=== PATIENT | male | born 1980 | race Two or more races ===

== ENCOUNTER 2016-03-31 15:39 | Inpatient (IN) | payer MEDICAID ==
[2016-03-31 16:36] LABS: BASO # 0.1 K/mm3 (0.0-0.2); BASO % 0.7 % (0.2-1.0); EOS # 0.1 (0.0-0.5); EOS % 1.4 % (0.9-2.9); HEMATOCRIT 41.4 % (32.0-52.0); HEMOGLOBIN 13.8 gm/l (14.0-18.0); IMM NEUT% 0.3 % (0-1); LYMPH # 2.2 (1.0-4.8); LYMPH % 31.6 % (15-45); MEAN CELL VOLUME 97.2 fl (80.0-94.0); MEAN CORPUSCULAR HEMOGLOBIN 32.4 pg (27.0-31.0); MEAN CORPUSCULAR HGB CONC 33.3 g/dl (33.0-37.0); MEAN PLATELET VOLUME 10.1 fl (7.4-10.4); MONO # 0.6 (0.0-0.8); MONO % 8.4 % (4-12); NEUT % 57.6 % (43-75); PLATELET COUNT 241 K/mm3 (130-400); RED CELL DISTRIBUTION WIDTH 12.8 % (11.5-14.5)
[2016-03-31 16:45] LABS: ALB/GLOB RATIO 1.5 (>1.0)
[2016-03-31 16:47] LABS: C-REACTIVE PROTEIN 1.5 mg/dl (<1.0)
--- NOTE | 2016-03-31 16:54 | RAD ---
Exam: Two-view left knee COMPARISON: None INDICATION: Left knee pain, concern for osteomyelitis. Findings: AP and lateral views of the left knee were obtained. Mild soft tissue swelling is seen anteriorly, and there is perhaps a tiny joint effusion. Overall normal bone mineralization. No focal osteopenia or cortical erosion is identified. Alignment is maintained and joint spaces are preserved. IMPRESSION: No radiographic evidence of osteomyelitis in the left knee.
[2016-03-31] MEDS ORDERED: MENTHOL/CETYLPYRD 1 EACH LOZENGE PO PRN (17:07)
[2016-03-31] MEDS ORDERED: BLISTEX LIPSTICK 1 EACH TP PRN (17:07)
[2016-03-31] MEDS ORDERED: MORPHINE SULFATE 2 MG/ML SYRINGE IV PRN ×2 (17:07→21:30)
[2016-03-31] MEDS ORDERED: LACTATED RINGERS 1,000 ML IV SCH ×2 (17:15→20:45)
[2016-03-31 18:30] VITALS: BMI 26.6
[2016-03-31] MEDS ORDERED: CEFAZOLIN SODIUM 2 GRAM PREMIX 2 G in Premix (D5W) 100 ml 1 EACH IV PRN (19:00)
[2016-03-31] MEDS ORDERED: MIDAZOLAM HCL 1 MG/ML 2ML VIAL ONE (19:15)
[2016-03-31] MEDS ORDERED: FENTANYL 100 MCG/2 ML VIAL ONE ×2 (19:25→20:41)
[2016-03-31] MEDS ORDERED: KETAMINE HCL UD SYRINGE 100 MG/2 ML IV ONE (19:25)
[2016-03-31] MEDS ORDERED: LIDOCAINE 2% (PRES FREE) 5 ML VIAL ONE (19:43)
[2016-03-31] MEDS ORDERED: PROPOFOL 40 ML IV ONE (19:57)
[2016-03-31] MEDS ORDERED: BUPIVACAINE 0.25% (PRES FREE) 30 ML VIAL ONE (20:07)
[2016-03-31] MEDS ORDERED: PROPOFOL 20 ML IV ONE (20:20)
[2016-03-31] MEDS ORDERED: CEFAZOLIN SODIUM 1,000 MG VIAL ONE (20:20)
--- NOTE | 2016-03-31 20:40 | PCMBPN ---
Brief Post Op Note: Date of Procedure: 03/31/16 Preoperative Diagnosis: 1. left knee superficial abscess Postoperative Diagnosis: 1. [Same] Procedure: left knee superficial abscess irrigation and debridement Surgeon: Messi De Oliveira MD Assist: Diabla SPEECH LANGUAGE PATHOLOGY ASSISTANT Anesthesia: MAC and 7mL of 0.25% marcaine without epi Findings: purulence by the abscess found. Packing placed and left knee medial knee closed loosely. I did not appreciate the abscess tracking into the left knee joint Condition: stable vitals, transferred to pacu Complications: None IV Fluids: 900 mLs of LR Urine Output: 0 mLs Estimated Blood Loss: 10 mLs Tourniquet Time: [N/A] Specimens: 1 sent to micro for aerobic and anaerobic cx and gram stain Implants: NOne Drains: [N/A] PLAN: WBAT on the LLE. Ancef emperically for staph coverage. REgular diet. ASA for DVT prophylaxis.
[2016-03-31] MEDS ORDERED: ONDANSETRON 4 MG/2ML 2 ML VIAL IV PRN (20:43)
[2016-03-31] MEDS ORDERED: MORPHINE SULFATE 4 MG/ML SYRINGE IV PRN ×2 (20:43→22:13)
[2016-03-31] MEDS ORDERED: PROMETHAZINE HCL 25 MG/ML VIAL IM PRN (20:43)
[2016-03-31] MEDS ORDERED: KETOROLAC TROMETHAMINE 30 MG/ML 1 ML VIAL IV ONE (20:43)
[2016-03-31] MEDS: FENTANYL 100 MCG/2 ML VIAL IV PRN ×2 (20:46→21:01)
[2016-03-31] MEDS ORDERED: KETOROLAC TROMETHAMINE 30 MG/ML 1 ML VIAL ONE (20:53)
[2016-03-31] MEDS ORDERED: LACTATED RINGERS 1,000 ML ONE (20:58)
[2016-03-31] MEDS ORDERED: MORPHINE SULFATE 4 MG/ML SYRINGE ONE (21:10)
[2016-03-31] MEDS: MORPHINE SULFATE 4 MG/ML SYRINGE IV PRN ×2 (21:11→21:19)
[2016-03-31] MEDS ORDERED: CALCIUM CARBONATE 500 MG TAB.CHEW PO PRN (21:30)
[2016-03-31] MEDS ORDERED: PUMP TUBING ONE (22:47)
[2016-03-31] MEDS: ACETAMINOPHEN 500 MG TABLET PO PRN (22:51)
[2016-03-31] MEDS: DOCUSATE SODIUM 100 MG CAPSULE PO SCH (22:51)
[2016-03-31] MEDS: LACTATED RINGERS 1,000 ML IV SCH (22:51)
[2016-03-31] MEDS: ASCORBIC ACID 500 MG TABLET PO SCH (22:51)
[2016-04-01] MEDS: OXYCODONE HCL 5 MG TABLET PO PRN ×4 (03:11→20:16)
[2016-04-01] MEDS: CEFAZOLIN SODIUM 2 GRAM DUPLEX 2 G in Premix (D5W) 50 ml 1 EACH IV SCH ×3 (04:05→20:07)
[2016-04-01] MEDS: ONDANSETRON 4 MG/2ML 2 ML VIAL IV PRN ×2 (05:31→15:07)
[2016-04-01] MEDS: ACETAMINOPHEN 500 MG TABLET PO PRN (06:07)
--- NOTE | 2016-04-01 07:55 | PDOC43 ---
- Subjective Subjective: Denies Pain Tolerable (Pt state having more pain this morning where abscess was opened and packed), Denies Shortness of Breath, Denies Nausea, Denies Vomiting, Denies Fever - Objective Vital Signs Temperature 98.0 F 04/01/16 04:45 Pulse Rate 77 04/01/16 04:45 Respiratory Rate 20 04/01/16 04:45 Blood Pressure 129/91 04/01/16 04:45 O2 Saturation by Pulse Oximetry 99 04/01/16 04:45 Oxygen Delivery Method Room Air Oxygen Flow Rate 0 Laboratory 03/31/16 16:15 03/31/16 16:15 03/31/16 16:15 RBC 4.26 L MCV 97.2 H MCH 32.4 H C-Reactive Protein 1.5 H Active Medication Orders Category Date Time Status Acetaminophen [Tylenol] Med 03/31/16 21:30 Active 500 - 1,000 mg PO Q6H PRN Ascorbic Acid [Vitamin C] Med 03/31/16 21:30 Active 500 mg PO BID Aspirin (Enteric Coated) [Ecotrin] Med 04/01/16 09:00 Active 325 mg PO DAILY Bisacodyl [Dulcolax] Med 04/03/16 20:41 Active 10 mg MA DAILY PRN Calcium Carbonate [Tums] Med 03/31/16 21:30 Active 1,000 - 2,000 mg PO Q2H PRN Cefazolin Sodium 2 Gram Duplex [Ancef 2 Gram Duplex] 2 Med 04/01/16 04:00 Active g Premix (D5W) 50 ml 1 each IV Q8H Docusate Sodium [Colace] Med 03/31/16 21:30 Active 100 mg PO BID Lactated Ringers 1,000 ml Med 03/31/16 21:30 Active IV 125 mls/hr Magnesium Hydroxide [Milk of Magnesia] Med 04/01/16 20:41 Active 30 ml PO DAILY PRN Morphine Sulfate Med 03/31/16 21:30 Active 2 - 4 mg IV Q4H PRN Morphine Sulfate Med 03/31/16 22:13 Active 2 - 4 mg IV Q4H PRN Multivitamins [One-A-Day] Med 04/01/16 09:00 Active 1 tab PO DAILY Ondansetron 4 mg/2ml Vial [Zofran] Med 03/31/16 21:30 Active 4 - 6 mg IV Q6H PRN Oxycodone HCl [Roxicodone] Med 03/31/16 21:30 Active 5 - 10 mg PO Q4H PRN Sodium Chloride 0.9% Flush [Normal Saline 10ml Flush] Med 03/31/16 21:30 Active 10 - 50 ml IV PRN PRN Sodium Chloride 0.9% Flush [Normal Saline 10ml Flush] Med 04/01/16 01:00 Active 10 ml IV Q8HR Intake and Output 03/30/16 03/31/16 04/01/16 23:59 23:59 23:59 Intake Total 1175 Output Total 1200 Balance -25 General: Afebrile - Left Lower Extremity Incision: Dressing Clean/Dry/Intact, No Dressing Saturated (Dressing is in placed. Cellulitic area on leg is the same. Will change packing later today and start wet to dry dressings.) Motor: Extensor Hallucis Longus: 5/5, Tibialis Anterior: 5/5, Gastrocnemius: 5/5 , Peroneals: 5/5 Gross Sensation to Light Touch: Present: Deep Peroneal Nerve, Superficial Peroneal Nerve Capillary Refill: < 3 Seconds - Problems (1) Abscess of knee, left Status: Acute - Disposition POD#1 s/p left knee abscess I and D and celllulits Pt on oxycodone for pain control with morphine. WbaT on the LLE. ASA for DVT Will change dressing later today wet to dry. Packing is currently in place. Will continue on IV Ancef 2gm until sensitivities back. Treating emperically for MSSA. Staph aureus growing from cultures.
[2016-04-01] MEDS: DOCUSATE SODIUM 100 MG CAPSULE PO SCH ×2 (08:02→20:08)
[2016-04-01] MEDS: ASCORBIC ACID 500 MG TABLET PO SCH ×2 (08:02→20:07)
[2016-04-01] MEDS: MULTIVITAMINS 1 TAB TABLET PO SCH (08:02)
[2016-04-01] MEDS: ASPIRIN (ENTERIC COATED) 325 MG TABLET.EC PO SCH (08:02)
[2016-04-01] MEDS ORDERED: SODIUM CHLORIDE 0.9% 100 ML IV ONE (13:06)
[2016-04-01] MEDS ORDERED: SODIUM CHLORIDE 0.9% FLUSH 10 ML ONE (20:03)
[2016-04-01] MEDS ORDERED: MAGNESIUM HYDROXIDE 30 ML UDCUP PO PRN (20:41)
[2016-04-01] MEDS: LACTATED RINGERS 1,000 ML IV SCH ×2 (22:34→22:35)
[2016-04-02] MEDS: CEFAZOLIN SODIUM 2 GRAM DUPLEX 2 G in Premix (D5W) 50 ml 1 EACH IV SCH (03:47)
[2016-04-02] MEDS: LACTATED RINGERS 1,000 ML IV SCH ×3 (06:01→22:57)
[2016-04-02] MEDS: OXYCODONE HCL 5 MG TABLET PO PRN (08:30)
[2016-04-02] MEDS: DOCUSATE SODIUM 100 MG CAPSULE PO SCH ×2 (08:34→22:04)
[2016-04-02] MEDS: MULTIVITAMINS 1 TAB TABLET PO SCH (08:34)
[2016-04-02] MEDS: ASPIRIN (ENTERIC COATED) 325 MG TABLET.EC PO SCH (08:34)
[2016-04-02] MEDS: ASCORBIC ACID 500 MG TABLET PO SCH ×2 (08:35→22:04)
--- NOTE | 2016-04-02 08:37 | PDOC43 ---
- Subjective Subjective: Reports Pain Tolerable (Pt doing ok but has had nausea yesterday. He states he had the nausea prior to taking oxycodone and coming to the ER so he does not think that it is the cause), Reports Nausea, Denies Chest Pain, Denies Shortness of Breath, Denies Vomiting, Denies Fever - Objective Vital Signs Temperature 98.2 F 04/02/16 04:00 Pulse Rate 76 04/02/16 04:00 Respiratory Rate 20 04/02/16 04:46 Blood Pressure 137/89 04/02/16 04:00 O2 Saturation by Pulse Oximetry 99 04/02/16 04:00 Oxygen Delivery Method Room Air Oxygen Flow Rate 0 Active Medication Orders Category Date Time Status Morphine Sulfate Med 03/31/16 22:13 Active 2 - 4 mg IV Q4H PRN Sodium Chloride 0.9% Flush [Normal Saline 10ml Flush] Med 04/01/16 01:00 Active 10 ml IV Q8HR Intake and Output 03/31/16 04/01/16 04/02/16 23:59 23:59 23:59 Intake Total 1850 1300 Output Total 2500 1450 Balance -650 -150 General: Afebrile - Left Lower Extremity Incision: Drainage, Erythema Motor: Extensor Hallucis Longus: 5/5, Tibialis Anterior: 5/5, Gastrocnemius: 5/5 , Peroneals: 5/5 Gross Sensation to Light Touch: Present: Deep Peroneal Nerve, Superficial Peroneal Nerve, Medial Plantar Nerve, Lateral Plantar Nerve, Sural Nerve, Saphenous Nerve Capillary Refill: < 3 Seconds (left tibia erythema is improving. Packing removed and no purulence. Pt still has swelling by his right leg but cellulitis is improving) - Problems (1) Abscess of knee, left Status: Acute - Disposition POD#2 s/p left knee abscess I and D and celllulits Pt on oxycodone for pain control with morphine. WbaT on the LLE. ASA for DVT Pt had a dressing change today. No gordy purulenc. Will contine on Ancef. Waiting for sensititivies on antibiotics. Staph aureus growing from cultures.
[2016-04-02] MEDS ORDERED: PUMP TUBING ONE ×2 (11:23→12:05)
[2016-04-02] MEDS ORDERED: SODIUM CHLORIDE 0.9% 100 ML IV ONE ×2 (11:29→12:05)
[2016-04-02] MEDS: CLINDAMYCIN 600 MG PREMIX 600 MG in Premix (D5W) 50 ml 1 EACH IV SCH ×2 (11:33→19:30)
--- NOTE | 2016-04-02 14:45 | HP ---
Jamar MORILLO : 1980 [id number] EMERGENCY ROOM ORTHOPEDIC H&P/CONSULTATION DATE OF ADMISSION: March 31, 2016 CHIEF COMPLAINT: "I have had left knee swelling and drainage that has gotten worse over the last day or so, that is filled with pus." HISTORY OF PRESENT ILLNESS: The patient is a 35-year-old male who I was called to see in the emergency room because of concern of superficial abscess and possible septic knee. The patient states that he is otherwise in good health. He noticed something that looked like a pimple on the aspect of his left knee. This proceeded to start draining whitish purulent type material. He has had spreading erythema and swelling of his left leg. He sought medical attention in the emergency today. Not been on any antibiotics. He denies any fevers or chills and would like to know what his options should be. PAST MEDICAL HISTORY: None. ALLERGIES: No known drug allergies. MEDICATIONS: None. PAST SURGICAL HISTORY: None. SOCIAL HISTORY: He is currently unemployed. He is here with a friend and his daughter. REVIEW OF SYSTEMS: He denies any fevers or chills, any gross abnormalities of the knee. He has had an injury to this knee in the past, but no infectious history. PHYSICAL EXAMINATION: GENERAL: The patient is alert and oriented times three in no acute distress. HEENT: EOMI bilaterally NECK: Is supple. HEART: Regular rate LUNGS: Clear to auscultation bilaterally. ABDOMEN: Soft, NT and non-distended. Physical exam of the right knee demonstrates a range of motion from 0 to 130 degrees of active flexion. He has 5/5 strength of his EHL, tibialis anterior, gastroc and peroneals, a 2+ PT pulse. Gross sensation to light touch in the distribution of DP, SP, MP, LP, sural and saphenous nerves. Physical exam of the left or affected knee demonstrates a gordy purulence coming from a small abscess the size of a dime on the medial aspect of the patient's knee. When I passively range the patient's knee I do not think that he has signs of aseptic joint but he is very tender. He has swelling that extends from this area all the way down to his ankle. The skin is erythematous and was marked with a marker. He has a good strength of his leg. Motor johnson his exam is as follows: He has 5/5 strength of his EHL, tibialis anterior, gastroc and peroneals and gross sensation to light touch in the distribution of DP, MP, LP, sural and saphenous nerves. He has a 1+ PT pulse, 1+ dorsalis pedis pulse. RADIOGRAPHS: X-rays of the left knee obtained on March 31, 2016, show no signs of fracture or dislocation, or any signs of a knee effusion. LABORATORY: Lab work demonstrates a white blood cell count of 6.9, a hematocrit 41, platelets of 241. Sodium 139, potassium 3.9, chloride 102, bicarb 29, BUN 14, creatinine 1.0, and elevated CRP of 1.5. ESR is still pending. Blood cultures are also pending. ASSESSMENT AND PLAN: The patient is a 35-year-old male with a superficial abscess on the medial aspect of his left knee by my clinical exam I do not think the patient has a septic knee, however it is difficult to know for sure. Because of the persistent drainage I do think that he would benefit from an I&D, I offered to do it here in the emergency room versus the operating room and the patient who has a fear of needles would prefer the operating room. I think this would be reasonable. I told him that this cavity may be packed requiring a repeat I&D and changes. If in the operating room he signs of extension to his joint I will perform at an arthroscopic irrigation and debridement. We have 2 g of Ancef correspondence transcriber to the operating room. The patient will be NPO with intravenous fluids. Job [id number] CC: [facility]
--- NOTE | 2016-04-02 16:12 | OP ---
Jamar MORILLO : 1980 [id number] DATE OF PROCEDURE: March 31, 2016 PREOPERATIVE DIAGNOSES: Left knee superficial abscess and cellulitis. POSTOPERATIVE DIAGNOSES: Left knee superficial abscess and cellulitis. PROCEDURE: LEFT KNEE SUPERFICIAL ABSCESS IRRIGATION AND DEBRIDEMENT. SURGEON: Messi De Oliveira M.D. MULTI SPINDLE OPERATOR: Tiffanie Kuhn ANESTHESIA: Monitored anesthesia care with 7 mL with 0.25% Marcaine without epinephrine injected by the incision site. FINDINGS: The patient had some local purulence found by the abscess. Some granulation tissue was debrided. I placed iodoform packing into the medial left knee enclosed loosely with simple Nylon sutures. I did not appreciate any abscess tracking in the knee and the knee joint itself was not washed out. CONDITION: The patient had stable vital signs and transferred to the PACU. COMPLICATIONS: None. INTRAVENOUS FLUIDS: 900 mL of Lactate Ringer's. URINE OUTPUT: 0 mL ESTIMATED BLOOD LOSS: 10 mL SPECIMENS: One culture specimen was sent to microscopic for aerobic, anaerobic and Gram-stain. TOURNIQUET TIME: N/A IMPLANTS: None. DRAINS: N/A PLAN: The patient will be weight-bearing as tolerated on the left lower extremity. Ancef will be started empirically for Staphylococcus coverage and we will check sensitivities, a regular diet and aspirin for DVT prophylaxis. INDICATIONS: The patient is a 35-year-old male who presented to the emergency room with a worsening cellulitis and a localized abscess. He has been draining this abscess for a week and he has continued to be persistent. The emergency room doctor consulted me for a possible I&D and admission for intravenous antibiotics. I spoke to the patient about my concerns. After examining his knee I think his knee motion looks okay, I am not concerned about a septic joint, however this abscess is directly over the medial aspect of the left knee. I told him that ideally I would like to clean this out to help potentially expedite its healing and then treat him with intravenous antibiotics. I told him that this could be best done in the operating room because if it did tract into the knee my recommendation would be to perform an arthroscopic irrigation and debridement. I spoke to him about potentially performing this in the ER but after a lengthy description about his options he elected to go to the operating room, I think this is a reasonable choice. He and I spoke about the risks of anesthesia, persist pain, need for future surgeries as well as trouble clearing the infection. After a lengthy description of these problems the patient decided to proceed with surgery. PROCEDURE DESCRIPTION: The patient was seen in the preoperative area where I confirmed that the left side was the correct side and marked his left leg with my initials and the word, "yes." I then had him seen by the anesthesia team who talked to him about monitored anesthesia care with local would be performed for this case. At this point, the patient was rolled back to the standard operating room and he was placed on a standard operating room table. Next, a safety belt was placed and SCDs were placed on the right lower nonoperative leg for intraoperative DVT prophylaxis. The patient then had some intravenous sedation as a nonsterile tourniquet was placed on the left leg, it would not be elevated for the case. The patient's left lower extremity was then prepped and draped with a Betadine scrub, and then prep. Once the leg was dry we performed a final timeout confirming that the left side was the correct side and that our planned procedure was a left knee abscess irrigation and debridement with possible knee arthroscopy irrigation and debridement. With this performed I used a #15 blade to lengthen the incision. I used a rongeur and a curette to debride the granulation tissue. There was some pus that was able to be expressed. I then used approximately 3 L of normal saline to flush out this area. Prior to doing this I did take a culture. Ancef was then administered. The patient had no tracking into the knee joint itself. I flexed and extended the knee and it was determined that this was a localized abscess. At this point with the knee cleared and cleaned, I then placed three simple Nylon sutures after packing the knee with iodoform dressing. This would be planned for removal in one day. Xeroform, 4 x 4, ABD was placed on the knee and an NAYAN wrap. The patient had a cooling unit and he was then taken to the recovery room where he had good pain control. At the end of the case all sponge and needle counts were correct. Based on the type of bacteria I plan for the patient to be on antibiotic possibly 2 to 4 weeks depending on his symptoms resolve. I talked to his family after the surgery describing the procedure. Job [id number] CC: Jeanine Chamberlain
[2016-04-03] MEDS: CLINDAMYCIN 600 MG PREMIX 600 MG in Premix (D5W) 50 ml 1 EACH IV SCH ×2 (03:34→10:57)
[2016-04-03] MEDS: OXYCODONE HCL 5 MG TABLET PO PRN ×2 (05:03→09:08)
[2016-04-03] MEDS: LACTATED RINGERS 1,000 ML IV SCH (05:34)
[2016-04-03] MEDS: DOCUSATE SODIUM 100 MG CAPSULE PO SCH (09:07)
[2016-04-03] MEDS: ASCORBIC ACID 500 MG TABLET PO SCH (09:07)
[2016-04-03] MEDS: MULTIVITAMINS 1 TAB TABLET PO SCH (09:08)
[2016-04-03] MEDS: ASPIRIN (ENTERIC COATED) 325 MG TABLET.EC PO SCH (09:08)
[2016-04-03] MEDS ORDERED: SODIUM CHLORIDE 0.9% 100 ML IV ONE (10:54)
--- NOTE | 2016-04-03 11:32 | PDOC43 ---
- Subjective Subjective: Reports Pain Tolerable, Denies Shortness of Breath, Denies Nausea, Denies Vomiting (Pt state his nausea is better. Would like to konw if he is going home.) - Objective Vital Signs Temperature 98.1 F 04/03/16 07:13 Pulse Rate 116 04/03/16 07:13 Respiratory Rate 18 04/03/16 07:13 Blood Pressure 160/104 04/03/16 07:13 O2 Saturation by Pulse Oximetry 97 04/03/16 07:13 Oxygen Delivery Method Room Air Oxygen Flow Rate 0 Active Medication Orders Category Date Time Status Clindamycin 600 mg Premix [Cleocin-D5w 600 mg/50 ml] Med 04/02/16 11:30 Active 600 mg Premix (D5W) 50 ml 1 each IV Q8H Morphine Sulfate Med 03/31/16 22:13 Active 2 - 4 mg IV Q4H PRN Sodium Chloride 0.9% Flush [Normal Saline 10ml Flush] Med 04/01/16 01:00 Active 10 ml IV Q8HR Intake and Output 04/01/16 04/02/16 04/03/16 23:59 23:59 23:59 Intake Total 1850 2500 600 Output Total 2500 3650 500 Balance -650 -1150 100 General: Afebrile - Left Lower Extremity Incision: Dressing Clean/Dry/Intact, No Erythema (Pt has left leg cellulitis which is improving. He has good ROM of the left leg without signs of a septic knee) Motor: Extensor Hallucis Longus: 5/5, Tibialis Anterior: 5/5, Gastrocnemius: 5/5 , Peroneals: 5/5 Gross Sensation to Light Touch: Present: Deep Peroneal Nerve, Superficial Peroneal Nerve Capillary Refill: < 3 Seconds - Problems (1) Abscess of knee, left Status: Acute - Disposition POD#3 s/p left knee abscess I and D and celllulits Pt on oxycodone for pain control with morphine. WbaT on the LLE. ASA for DVT Pt had a dressing change today. No gordy purulence. Will contine on Clinda 300mg po q 8 hours for MRSA for one week after surgery
[2016-04-03 12:54] VITALS: BP 155/111
[2016-04-03] MEDS ORDERED: BISACODYL 10 MG SUP PR PRN (20:41)
--- NOTE | 2016-04-06 12:52 | DS ---
Jamar MORILLO [id number] : 1980 DATE OF ADMISSION: March 31, 2016 DATE OF DISCHARGE: April 03, 2016 HOSPITAL PROCEDURE: Left knee abscess and cellulitis irrigation and debridement. SURGEON: Messi De Oliveira M.D. HOSPITAL COURSE: The patient is a 35-year-old male who was admitted from the emergency room due to a left knee anterior medial abscess and spreading cellulitis. The emergency room physician did not feel that this went into the joint. I evaluated patient. I agreed that it was not a septic arthritis; however he did have a small abscess that was not improving on its own. Because of the spreading erythema and his young age I thought that it the best to offer the patient an I&D with admission for intravenous antibiotics. The patient was taken to the operating room where pus was expressed. Cultures were obtained and the patient did have community acquired MRSA. The patient had wet to dry dressings and packings performed. The patient had good pain control and decreasing erythema in this leg on postoperative day number one. By postoperative day number two he continued to show improvement, however we did have to switch his antibiotics to clindamycin due to its resistance to oxacillin. By postoperative day number three the patient was doing well in terms of pain control and was ready to be discharged home. The current plan is to discharge him on 300 mg of clindamycin every eight hours for one week after surgery. The patient will change his dressings daily, keeping an eye on his incision and his like to make sure that his erythema continues to improve. He was given a prescription for oxycodone for pain control. One tablet by mouth every eight hours as needed for pain, and I asked him to take an aspirin a day for DVT prophylaxis. The patient will follow up in my office in approximately 10 to 12 days for a wound check with possible suture removal. Job [id number] cc: [facility]
== END 2016-04-03 12:25 | disposition home or self-care (01) | DRG 603 ==
LOC: ED 15:39 → SDC 16:35 → MS 16:48 → SDC 16:48 → MS 21:30 → SDC 04-01 09:13
PROVIDERS: ADMIT Orthopaedic Surgery; ATTEND Orthopaedic Surgery
PROC: 0S9D0ZX Drainage of Left Knee Joint, Open Approach, Diagnostic (ICD-10-PCS; principal; 2016-03-31)
DX: L02.416 Cutaneous abscess of left lower limb (principal); L03.116 Cellulitis of left lower limb; B95.62 Methicillin resistant Staphylococcus aureus infection as the cause of diseases classified elsewhere